=== PATIENT | female | born 1930 | race Caucasian/White ===

== ENCOUNTER 2017-09-28 13:22 | Inpatient (IN) | payer MEDICARE, BC ==
[2017-09-28 15:31] LABS: ADD MAN DIFF? NO
[2017-09-28 15:34] LABS: BASOPHILS % 0.4 % (0.0-2.0); EOSINOPHILS # 0.1 10^3/ul (0.0-0.5); EOSINOPHILS % 1.3 % (0.0-7.0); HEMOGLOBIN 13.9 g/dl (12.0-16.0); LYMPHOCYTES # 1.6 10^3/ul (0.8-2.9); LYMPHOCYTES % 18.2 % (15.0-51.0); MEAN CORPUSCULAR HEMOGLOBIN 28.7 pg (29.0-33.0); MEAN CORPUSCULAR HGB CONC 33.1 g/dl (32.0-37.0); MEAN CORPUSCULAR VOLUME 86.8 fl (82.0-101.0); MEAN PLATELET VOLUME 11.4 fl (7.4-10.4); MONOCYTE # 0.6 10^3/ul (0.3-0.9); MONOCYTES % 6.2 % (0.0-11.0); NEUTROPHIL # 6.6 10^3/ul (1.6-7.5); NEUTROPHILS % 73.5 % (39.0-77.0); PLATELET COUNT 180 10^3/UL (140-415); RED BLOOD COUNT 4.84 10^6/ul (4.20-5.40); RED CELL DISTRIBUTION WIDTH 13.2 % (11.5-14.5)
[2017-09-28 15:53] LABS: ANION GAP 18 (8-16); BLOOD UREA NITROGEN 40 mg/dl (7-20); CALCIUM 9.7 mg/dl (8.4-10.2); CARBON DIOXIDE 23 mmol/L (21-31); CHLORIDE 108 mmol/L (97-110); CREATININE 1.32 mg/dl (0.44-1.00); GLUCOSE 81 mg/dl (70-220); SODIUM 144 mmol/L (135-144)
[2017-09-28 15:55] LABS: INR 0.95; PARTIAL THROMBOPLASTIN TIME 26.9 Sec (25.0-35.0); PROTIME 12.8 Sec (11.9-14.9)
[2017-09-28 16:06] LABS: TROPONIN-I < 0.012 ng/ml (0.00-0.12)
[2017-09-28 16:08] LABS: POTASSIUM 5.2 mmol/L (3.5-5.1)
[2017-09-28] MEDS: SOD CHLORIDE 0.9% 500 ML IV (16:47)
[2017-09-28] MEDS: ASPIRIN 81 MG TAB PO (19:25)
[2017-09-28] MEDS ORDERED: NACL 0.9% 3 ML SYG IV (21:00)
[2017-09-28] MEDS ORDERED: LORAZEPAM 0.5 MG TAB PO (21:00)
[2017-09-28] MEDS ORDERED: ZOLPIDEM 5 MG TAB PO (21:00)
[2017-09-28] MEDS ORDERED: NITROGLYCERIN (SL) 0.4 MG TAB SL (21:00)
[2017-09-28] MEDS ORDERED: DOCUSATE SODIUM 100 MG CAP PO (21:00)
[2017-09-28] MEDS ORDERED: ACETAMINOPHEN 325 MG TAB PO (21:00)
[2017-09-28] MEDS ORDERED: NA PHOSPHATE/BIPHOS 133 ML ENEMA PR (21:00)
[2017-09-28] MEDS ORDERED: ONDANSETRON 4 MG TAB PO (21:00)
[2017-09-28 21:59] LABS: CREATINE KINASE 48 IU/L (23-200)
[2017-09-28 22:12] LABS: CK INDEX 4.2
[2017-09-28 22:14] LABS: TROPONIN-I < 0.012 ng/ml (0.00-0.12)
[2017-09-28] MEDS: FAMOTIDINE 20 MG TAB PO (23:51)
[2017-09-28] MEDS: HEPARIN 5,000 UNIT/0.5 ML VIAL SC (23:51)
[2017-09-29] MEDS: METOPROLOL (XL) 25 MG TAB PO ×3 (00:50→21:00)
[2017-09-29 03:59] LABS: CREATINE KINASE 46 IU/L (23-200)
[2017-09-29 04:06] LABS: CK INDEX 3.9; CK-MB 1.78 ng/ml (0.0-2.4); TROPONIN-I < 0.012 ng/ml (0.00-0.12)
[2017-09-29] MEDS: LEVOTHYROXINE 50 MCG TAB PO (06:34)
[2017-09-29 07:30] LABS: ADD MAN DIFF? NO
[2017-09-29 08:24] LABS: WHITE BLOOD COUNT 7.5 10^3/ul (4.8-10.8)
[2017-09-29 08:24] LABS: ALANINE AMINOTRANSFERASE 31 IU/L (13-69); ALBUMIN 4.1 g/dl (3.3-4.9); ALBUMIN/GLOBULIN RATIO 1.57; ALKALINE PHOSPHATASE 72 IU/L (42-121); ANION GAP 14 (8-16); ASPARTATE AMINO TRANSFERASE 24 IU/L (15-46); BASOPHIL # 0.1 10^3/ul (0.0-0.1); BASOPHILS % 0.7 % (0.0-2.0); BILIRUBIN,INDIRECT 0.5 mg/dl (0-1.1); BILIRUBIN,TOTAL 0.5 mg/dl (0.2-1.3); BLOOD UREA NITROGEN 36 mg/dl (7-20); CALCIUM 9.7 mg/dl (8.4-10.2); CARBON DIOXIDE 26 mmol/L (21-31); CHLORIDE 112 mmol/L (97-110); CREATININE 1.24 mg/dl (0.44-1.00); EOSINOPHILS # 0.2 10^3/ul (0.0-0.5); EOSINOPHILS % 2.9 % (0.0-7.0); GLUCOSE 90 mg/dl (70-220); HEMATOCRIT 40.4 % (37.0-47.0); HEMOGLOBIN 13.4 g/dl (12.0-16.0); LYMPHOCYTES # 2.3 10^3/ul (0.8-2.9); LYMPHOCYTES % 30.9 % (15.0-51.0); MAGNESIUM 2.1 mg/dl (1.7-2.5); MEAN CORPUSCULAR HEMOGLOBIN 29.1 pg (29.0-33.0); MEAN CORPUSCULAR HGB CONC 33.2 g/dl (32.0-37.0); MEAN CORPUSCULAR VOLUME 87.6 fl (82.0-101.0); MEAN PLATELET VOLUME 11.4 fl (7.4-10.4); MONOCYTE # 0.5 10^3/ul (0.3-0.9); MONOCYTES % 6.2 % (0.0-11.0); NEUTROPHIL # 4.5 10^3/ul (1.6-7.5); NEUTROPHILS % 59.2 % (39.0-77.0); PLATELET COUNT 176 10^3/UL (140-415); POTASSIUM 4.7 mmol/L (3.5-5.1); RED BLOOD COUNT 4.61 10^6/ul (4.20-5.40); RED CELL DISTRIBUTION WIDTH 13.5 % (11.5-14.5); SODIUM 147 mmol/L (135-144); TOTAL PROTEIN 6.7 g/dl (6.1-8.1)
[2017-09-29] MEDS: ASPIRIN 81 MG TAB PO (08:46)
[2017-09-29] MEDS: FAMOTIDINE 20 MG TAB PO (08:46)
[2017-09-29] MEDS: LISINOPRIL 10 MG TAB PO (08:46)
[2017-09-29] MEDS: HEPARIN 5,000 UNIT/0.5 ML VIAL SC ×2 (08:49→21:00)
[2017-09-29] MEDS: LIOTHYRONINE 5 MCG TAB PO (09:00)
[2017-09-29] MEDS: TOPIRAMATE SPRINKLE 25 MG CAP PO (09:00)
[2017-09-29] MEDS: ACETYLCYSTEINE 600 MG CAP PO ×2 (09:30→20:50)
[2017-09-29] MEDS ORDERED: IODIXANOL LOCM 100 ML BTL (15:35)
[2017-09-29] MEDS ORDERED: MIDAZOLAM 1 MG/ML 2 ML INJ (15:35)
[2017-09-29] MEDS ORDERED: FENTAnyl 50 MCG/ML VIAL (15:35)
[2017-09-29] MEDS ORDERED: LIDOCAINE 1% (MDV) 20 ML INJ ×2 (15:35→16:25)
[2017-09-29] MEDS ORDERED: HEPARIN 1000 UNITS/ML 10 ML INJ (15:35)
[2017-09-29] MEDS ORDERED: VERAPAMIL 5 MG INJ (15:35)
[2017-09-29] MEDS ORDERED: AL HYDROX/MG HYDROX/SIMETH 30 ML CUP PO (16:30)
[2017-09-29] MEDS ORDERED: morphine 2 MG INJ IV (16:30)
[2017-09-29] MEDS ORDERED: ACETAMINOPHEN 325 MG TAB PO (16:30)
[2017-09-29] MEDS ORDERED: ONDANSETRON 4 MG INJ IV (16:30)
[2017-09-29] MEDS: SOD CHLORIDE 0.9% 1,000 ML IV (17:11)
[2017-09-30] MEDS: LEVOTHYROXINE 50 MCG TAB PO (06:44)
[2017-09-30] MEDS: HEPARIN 5,000 UNIT/0.5 ML VIAL SC (09:00)
[2017-09-30] MEDS: FAMOTIDINE 20 MG TAB PO (09:37)
[2017-09-30] MEDS: ACETYLCYSTEINE 600 MG CAP PO (09:37)
[2017-09-30] MEDS: LIOTHYRONINE 5 MCG TAB PO (09:37)
[2017-09-30] MEDS: METOPROLOL (XL) 25 MG TAB PO (09:39)
[2017-09-30] MEDS: ASPIRIN 81 MG TAB PO (09:39)
[2017-09-30] MEDS: LISINOPRIL 10 MG TAB PO (09:39)
[2017-09-30] MEDS: TOPIRAMATE SPRINKLE 25 MG CAP PO (09:39)
[2017-09-30 16:22] LABS: ANION GAP 17 (8-16); BLOOD UREA NITROGEN 29 mg/dl (7-20); CARBON DIOXIDE 26 mmol/L (21-31); CHLORIDE 108 mmol/L (97-110); CREATININE 1.19 mg/dl (0.44-1.00); GLUCOSE 83 mg/dl (70-220); POTASSIUM 4.6 mmol/L (3.5-5.1); SODIUM 146 mmol/L (135-144)
== END 2017-09-30 17:30 | disposition home or self-care (01) | DRG 287 ==
LOC: TEL 17:56 → E/R 13:22
PROC: 4A023N7 Measurement of Cardiac Sampling and Pressure, Left Heart, Percutaneous Approach (ICD-10-PCS; principal; 2017-09-29 15:38)
PROC: B211YZZ Fluoroscopy of Multiple Coronary Arteries using Other Contrast (ICD-10-PCS; 2017-09-29 15:38)
PROC: B215YZZ Fluoroscopy of Left Heart using Other Contrast (ICD-10-PCS; 2017-09-29 15:38)
DX: I25.10 Atherosclerotic heart disease of native coronary artery without angina pectoris (principal); E86.0 Dehydration; R07.2 Precordial pain; I10 Essential (primary) hypertension; E03.9 Hypothyroidism, unspecified; G43.109 Migraine with aura, not intractable, without status migrainosus; K29.70 Gastritis, unspecified, without bleeding; R07.89 Other chest pain; F34.1 Dysthymic disorder; F32.9 Major depressive disorder, single episode, unspecified; M19.012 Primary osteoarthritis, left shoulder
CPT/HCPCS: 36415; 70551; 71045; 72141; 73221; 80048; 80053; 82550; 82553; 83735; 84484; 85025; 85610; 85730; 93005; 93458; 96372; 97161; 97165; 99285-25